=== PATIENT | male | born 1965 | race African-American/Black ===

== ENCOUNTER 2017-09-22 21:57 | Inpatient (IN) | payer OTHER ==
[2017-09-22 22:55] VITALS: BMI 23.1
--- NOTE | 2017-09-22 23:41 | HP ---
CIWA Score - CIWA Score Nausea/Vomitin Muscle Tremors: 4-Moderate,w/Arms Extend Anxiety: 4-Mod. Anxious/Guarded Agitation: 3 Paroxysmal Sweats: No Perspiration Orientation: 0-Oriented Tacttile Disturbances: 0-None Auditory Disturbances: 0-None Visual Disturbances: 0-None Headache: 3-Moderate CIWA-Ar Total Score: 17 Admission ROS BHS - HPI Chief Complaint: Alcohol withdrawal symptoms Allergies/Adverse Reactions: Allergies Allergy/AdvReac Type Severity Reaction Status Date / Time No Known Allergies Allergy Verified 09/22/17 23:18 History of Present Illness: 52 years old male with a long hstory of alcohol dependence is seeking admission to detox. Patient has been in previous detox and reports insignificant period of sobriety. He has medical history of prostate Cancer, HIV +, anemia, Hep. C and depression. Reports suicide attempt in 2017 and denies suicidal ideation at this time. Exam Limitations: No Limitations - Ebola screening Have you traveled outside of the country in the last 21 days: No Have you had contact with anyone from an Ebola affected area: No Have you been sick,other than usual withdrawal symptoms: No Do you have a fever: No - Review of Systems Constitutional: Chills, Loss of Appetite, Malaise, Night Sweats, Changes in sleep, Weakness, Unexplained wgt Loss (reports about 10lbs weight loss) EENT: reports: Nose Congestion Respiratory: reports: No Symptoms reported Cardiac: reports: No Symptoms Reported GI: reports: Nausea, Poor Appetite, Poor Fluid Intake, Vomiting, Abdominal cramping : reports: No Symptoms Reported Musculoskeletal: reports: Back Pain, Muscle Pain Integumentary: reports: Dryness, Flushing Neuro: reports: Headache, Tingling, Tremors Endocrine: reports: No Symptoms Reported Hematology: reports: Anemia Psychiatric: reports: Anxious, Depressed Other Systems: Reviewed and Negative Patient History - Patient Medical History Hx Anemia: Yes (Ferrous sulfate) Hx Asthma: No Hx Chronic Obstructive Pulmonary Disease (COPD): No Hx Cancer: Yes (Pancreatic Cancer) Hx Cardiac Disorders: No Hx Congestive Heart Failure: No Hx Hypertension: No Hx Hypercholesterolemia: No Hx Pacemaker: No HX Cerebrovascular Accident: No Hx Seizures: No Hx Dementia: No Hx Diabetes: No Hx Gastrointestinal Disorders: No Hx Liver Disease: Yes (Hep. C) Hx Genitourinary Disorders: No Hx Sexually Transmitted Disorders: Yes (HIV+) Hx Renal Disease (ESRD): No Hx Thyroid Disease: No Hx Human Immunodeficiency Virus (HIV): Yes (Diagnosed since 1996. Not on medication) Hx Hepatitis C: Yes (Treated with Harvoni ) Hx Depression: Yes (Seroquel) Hx Suicide Attempt: Yes (Reports attempt in 2017. Denies suicidal ideation at this time) Hx Bipolar Disorder: Yes Hx Schizophrenia: No - Patient Surgical History Past Surgical History: Yes Hx Neurologic Surgery: No Hx Cataract Extraction: No Hx Cardiac Surgery: No Hx Lung Surgery: No Hx Abdominal Surgery: No Hx Appendectomy: No Hx Cholecystectomy: No Hx Genitourinary Surgery: No Hx Orthopedic Surgery: No Other Surgical History: Hernia surgery at 14 years old Anesthesia Reaction: No - PPD History Previous Implant?: Yes (PPD POSITIVE 1991. INH and B12 THERAPY) Documented Results: Positive w/proof Implanted On Prior [facility] Admission?: No PPD to be Administered?: No - Reproductive History Patient is a Female of Child Bearing Age (11 -55 yrs old): No (MALE) - Smoking Cessation Smoking history: Former smoker Have you smoked in the past 12 months: No Hx Chewing Tobacco Use: No Initiated information on smoking cessation: No - Substance & Tx. History Hx Alcohol Use: Yes Hx Substance Use: Yes Substance Use Type: Cocaine, Marijuana Hx Substance Use Treatment: Yes ([facility]) - Substances Abused Alcohol Route: Oral Frequency: Daily Amount used: liquor- 2 pints, beer- 2 -24oz Age of first use: 10 Date of Last Use: 09/22/17 Cocaine Route: Smoking Frequency: Daily Amount used: $100 Age of first use: 10 Date of Last Use: 09/21/17 Marijuana/Hashish Route: Smoking Frequency: Daily Amount used: $50-$100 Age of first use: 20 Date of Last Use: 09/21/17 Family Disease History - Family Disease History Family Disease History: Diabetes: Grandparent, Mother, Heart Disease: Grandparent, Mother, CA: Grandparent, Mother Admission Physical Exam S - Vital Signs Vital Signs: Vital Signs - 24 hr 09/22/17 22:49 Temperature 98.9 F Pulse Rate 87 Respiratory 18 Rate Blood Pressure 100/50 - Physical General Appearance: Yes: Moderate Distress, Thin, Tremorous, Irritable, Anxious HEENTM: Yes: EOMI, Normal ENT Inspection, Normal Voice, GILL, Other (missing upper and lower teeth) Respiratory: Yes: Lungs Clear, Normal Breath Sounds, No Respiratory Distress Neck: Yes: Supple Breast: Yes: Breast Exam Deferred Cardiology: Yes: Regular Rhythm, Regular Rate, S1, S2 Abdominal: Yes: Normal Bowel Sounds, Soft Genitourinary: Yes: Within Normal Limits Back: Yes: Normal Inspection Musculoskeletal: Yes: Back pain Extremities: Yes: Tremors Neurological: Yes: Alert, Normal Mood/Affect Integumentary: Yes: Dry, Pale Lymphatic: Yes: Within Normal Limits - Diagnostic (1) Alcohol dependence with uncomplicated withdrawal Current Visit: Yes Status: Chronic (2) Prostate cancer Current Visit: Yes Status: Chronic (3) Depression Current Visit: Yes Status: Chronic Qualifiers: Depression Type: unspecified Qualified Code(s): F32.9 - Major depressive disorder, single episode, unspecified (4) Anemia Current Visit: Yes Status: Chronic Qualifiers: Anemia type: iron deficiency (5) Cannabis dependence Current Visit: Yes Status: Chronic (6) Cocaine dependence Current Visit: Yes Status: Chronic Qualifiers: Substance use status: uncomplicated Qualified Code(s): F14.20 - Cocaine dependence, uncomplicated (7) HIV (human immunodeficiency virus infection) Current Visit: Yes Status: Chronic Comment: unable to mentio last CD4 (8) Hepatitis C Current Visit: Yes Status: Resolved Comment: pt on harvoni but forgot to bring medication. Pt is aware that we dont carry this medication. Pt is made aware and in agreement that he wont take medication during his stay and will resume when he is d/c from rehab. BHS Breath Alcohol Content Breath Alcohol Content: 0 Urine Drug Screen - Results Drug Screen Negative: No Urine Drug Screen Results: THC-Marijuana, AGUSTINA-Cocaine, TCA-Tricyclic Antidepress
[2017-09-23] MEDS ORDERED: MAGNESIUM CITRATE 300 ML BOTTLE PO PRN
[2017-09-23] MEDS ORDERED: ACETAMINOPHEN 325 MG TABLET (FP) PO PRN
[2017-09-23] MEDS ORDERED: guaiFENesin/D-METHORPHAN HB 10 ML UNIT-DOSE CUPS PO PRN
[2017-09-23] MEDS ORDERED: LOPERAMIDE HCL 2 MG CAPSULE PO PRN
[2017-09-23] MEDS ORDERED: MAG HYDROX/AL HYDROX/SIMETH 30 ML UNIT-DOSE CUP PO PRN
[2017-09-23] MEDS ORDERED: MAGNESIUM HYDROX 2400MG/30ML ORAL SUSPENSION 30 ML CUP PO PRN
[2017-09-23] MEDS ORDERED: P-EPHED 60MG/TRIPROLIDI 2.5MG TABLET PO PRN
[2017-09-23] MEDS ORDERED: IBUPROFEN 400 MG TABLET (FP) PO PRN
[2017-09-23] MEDS ORDERED: chlordiazePOXIDE HCL 25 MG CAPSULE PO PRN
[2017-09-23] MEDS: chlordiazePOXIDE HCL 25 MG CAPSULE PO SCH ×4 (05:54→22:26)
[2017-09-23 08:45] LABS: URINE APPEARANCE SLCLOUDY; URINE BLOOD NEGATIVE (NEGATIVE); URINE GLUCOSE (UA) NEGATIVE (NEGATIVE); URINE KETONE TRACE (NEGATIVE); URINE LEUK ESTERASE NEGATIVE (NEGATIVE); URINE NITRITE NEGATIVE (NEGATIVE); URINE UROBILINOGEN 4.0 E.U/dl mg/dL (0.2-1.0)
[2017-09-23 09:01] LABS: URINE PROTEIN 2+ (NEGATIVE)
[2017-09-23 09:05] LABS: URINE COLOR DK YELLOW
[2017-09-23 09:11] LABS: EPI CELLS RARE /HPF (FEW); URINE HYALINE CAST 325 /lpf; URINE MUCUS MANY
[2017-09-23] MEDS ORDERED: PATIENT'S OWN MEDICATION (NON-FORMULARY) (Efavirenz/Emtricitab/Tenofovir 1 TAB) PO SCH ×2 (10:00)
[2017-09-23] MEDS ORDERED: DRONABINOL 5 MG CAPSULE PO SCH (10:00)
[2017-09-23] MEDS: PRENATAL VITAMINS W/ FOLIC ACID TABLET (FP) PO SCH (10:01)
[2017-09-23] MEDS: MEGESTROL ACETATE 400 MG/10 ML UNIT DOSE CUP PO SCH ×2 (10:01→22:26)
[2017-09-23 10:53] LABS: HEMATOCRIT 30.8 % (35.4-49); HEMOGLOBIN 10.3 GM/dL (11.7-16.9); MCH 30.4 pg (25.7-33.7); MCHC 33.4 g/dl (32.0-35.9); MEAN PLT VOLUME 8.5 fl (7.5-11.1); PLATELET COUNT 183 K/MM3 (134-434); RBC 3.39 M/mm3 (4.00-5.60); RDW 14.4 % (11.9-15.9); WHITE BLOOD COUNT 2.8 K/mm3 (4.0-10.0)
--- NOTE | 2017-09-23 10:53 | EKG ---
Test Reason : Blood Pressure : / mmHG Vent. Rate : 072 BPM Atrial Rate : 072 BPM P-R Int : 162 ms QRS Dur : 092 ms QT Int : 392 ms P-R-T Axes : 053 025 040 degrees QTc Int : 429 ms NORMAL SINUS RHYTHM NORMAL ECG NO PREVIOUS ECGS AVAILABLE Confirmed by URSULA CYR, KODY ([id number]) on 09/23/2017 10:53:00 AM Referred By: Confirmed By:KODY VERGARA MD
[2017-09-23 11:07] LABS: CHLORIDE 107 mmol/L (98-107); SODIUM 143 mmol/L (136-145)
[2017-09-23 11:37] LABS: ALBUMIN 3.2 g/dl (3.4-5.0); ALK PHOS 65 U/L (45-117); ANION GAP 8 (8-16); BILIRUBIN,TOTAL 0.2 mg/dL (0.2-1.0); BLOOD UREA NITROGEN 16 mg/dL (7-18); CO2 28 mmol/L (21-32); CREATININE 1.5 mg/dL (0.7-1.3); GLUCOSE,RANDOM 103 mg/dL (74-106); SGOT/AST 28 U/L (15-37); SGPT/ALT 16 U/L (12-78); TOT PROT 7.1 g/dl (6.4-8.2)
[2017-09-23] MEDS ORDERED: EMTRICITABINE 200MG/TENOFOVIR 300MG PO SCH (12:00)
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
--- NOTE | 2017-09-23 12:13 | PN ---
S CIWA - CIWA Score Nausea/Vomitin-Int. Nausea w/Dry Heave Muscle Tremors: 3 Anxiety: 4-Mod. Anxious/Guarded Agitation: 3 Paroxysmal Sweats: 1-Minimal Palms Moist Orientation: 0-Oriented Tacttile Disturbances: 0-None Auditory Disturbances: 0-None Visual Disturbances: 0-None Headache: 0-None Present CIWA-Ar Total Score: 15 BHS Progress Note (SOAP) Subjective: ANXIETY,SLIGHT TREMORS,NAUSEA,FATIGUE,INTERMITTENT SLEEP. Objective: 09/23/17 12:11 Vital Signs Temperature 96.1 F L 09/23/17 09:26 Pulse Rate 82 09/23/17 09:26 Respiratory Rate 18 09/23/17 09:26 Blood Pressure 94/67 09/23/17 09:26 O2 Sat by Pulse Oximetry (%) Laboratory Last Values WBC 2.8 K/mm3 (4.0-10.0) L D 09/23/17 07:00 RBC 3.39 M/mm3 (4.00-5.60) L 09/23/17 07:00 Hgb 10.3 GM/dL (11.7-16.9) L D 09/23/17 07:00 Hct 30.8 % (35.4-49) L D 09/23/17 07:00 MCV 91.0 fl (80-96) 09/23/17 07:00 MCH 30.4 pg (25.7-33.7) 09/23/17 07:00 MCHC 33.4 g/dl (32.0-35.9) 09/23/17 07:00 RDW 14.4 % (11.9-15.9) 09/23/17 07:00 Plt Count 183 K/MM3 (134-434) D 09/23/17 07:00 MPV 8.5 fl (7.5-11.1) 09/23/17 07:00 Sodium 143 mmol/L (136-145) 09/23/17 07:00 Potassium 4.0 mmol/L (3.5-5.1) 09/23/17 07:00 Chloride 107 mmol/L (98-107) 09/23/17 07:00 Carbon Dioxide 28 mmol/L (21-32) 09/23/17 07:00 Anion Gap 8 (8-16) 09/23/17 07:00 BUN 16 mg/dL (7-18) D 09/23/17 07:00 Creatinine 1.5 mg/dL (0.7-1.3) H D 09/23/17 07:00 Creat Clearance w eGFR 48.77 (>60) 09/23/17 07:00 Random Glucose 103 mg/dL (74-106) 09/23/17 07:00 Calcium 9.0 mg/dL (8.5-10.1) 09/23/17 07:00 Total Bilirubin 0.2 mg/dL (0.2-1.0) 09/23/17 07:00 AST 28 U/L (15-37) D 09/23/17 07:00 ALT 16 U/L (12-78) D 09/23/17 07:00 Alkaline Phosphatase 65 U/L (45-117) D 09/23/17 07:00 Total Protein 7.1 g/dl (6.4-8.2) 09/23/17 07:00 Albumin 3.2 g/dl (3.4-5.0) L 09/23/17 07:00 Urine Color Dk yellow 09/23/17 01:00 Urine Appearance Slcloudy 09/23/17 01:00 Urine pH 5.0 (5.0-8.0) D 09/23/17 01:00 Ur Specific [place] 1.029 (1.001-1.035) 09/23/17 01:00 Urine Protein 2+ (NEGATIVE) H 09/23/17 01:00 Urine Glucose (UA) Negative (NEGATIVE) 09/23/17 01:00 Urine Ketones Trace (NEGATIVE) H 09/23/17 01:00 Urine Blood Negative (NEGATIVE) 09/23/17 01:00 Urine Nitrite Negative (NEGATIVE) 09/23/17 01:00 Urine Bilirubin 2.0 (<2.0 mg/dL) 09/23/17 01:00 Urine Urobilinogen 4.0 e.u/dl mg/dL (0.2-1.0) 09/23/17 01:00 Ur Leukocyte Esterase Negative (NEGATIVE) 09/23/17 01:00 Urine WBC (Auto) 11 /hpf (3-5) 09/23/17 01:00 Urine RBC (Auto) 3 /hpf (0-3) 09/23/17 01:00 Ur Epithelial Cells Rare /HPF (FEW) 09/23/17 01:00 Hyaline Casts 325 /lpf 09/23/17 01:00 Urine Mucus Many 09/23/17 01:00 UA NOTED Assessment: 09/23/17 12:12 WITHDRAWAL SX Plan: CONTINUE DETOX INCREASE PO FLUIDS REPEAT UA TODAY ZOFRAN PRN
[2017-09-23] MEDS: EFAVIRENZ 600 MG TABLET PO SCH (12:47)
[2017-09-23] MEDS: FERROUS SO4 325 MG TABLET (FP) PO SCH (14:34)
[2017-09-23] MEDS ORDERED: MELATONIN 5 MG TABLETS PO PRN (22:00)
[2017-09-23] MEDS: THIAMINE HCL 100 MG TABLET (FP) PO SCH (22:25)
[2017-09-23] MEDS: QUEtiapine FUMARATE 100 MG TABLET (FP) PO SCH (22:26)
[2017-09-24] MEDS: chlordiazePOXIDE HCL 25 MG CAPSULE PO SCH ×4 (05:46→22:26)
[2017-09-24] MEDS: MENTHOL/PHENOL 1 EACH UD MM PRN (05:47)
[2017-09-24] MEDS: MEGESTROL ACETATE 400 MG/10 ML UNIT DOSE CUP PO SCH ×2 (10:28→22:26)
[2017-09-24] MEDS: PRENATAL VITAMINS W/ FOLIC ACID TABLET (FP) PO SCH (10:29)
[2017-09-24] MEDS: FERROUS SO4 325 MG TABLET (FP) PO SCH (10:29)
[2017-09-24] MEDS: EFAVIRENZ 600 MG TABLET PO SCH (10:51)
--- NOTE | 2017-09-24 17:07 | PN ---
S CIWA - CIWA Score Nausea/Vomitin Muscle Tremors: 3 Anxiety: 4-Mod. Anxious/Guarded Agitation: 3 Paroxysmal Sweats: No Perspiration Orientation: 0-Oriented Tacttile Disturbances: 2-Mild Itch/Numbness/Burn Auditory Disturbances: 1-Very Mild Visual Disturbances: 0-None Headache: 0-None Present CIWA-Ar Total Score: 16 BHS Progress Note (SOAP) Subjective: Tremors, Fatigue, Anxious, Nausea, Body Aches. Objective: PATIENT A & O X 3. NO ACUTE DISTRESS. 09/24/17 17:04 Vital Signs Temperature 97.7 F 09/24/17 13:19 Pulse Rate 92 H 09/24/17 13:19 Respiratory Rate 16 09/24/17 13:19 Blood Pressure 111/74 09/24/17 13:19 O2 Sat by Pulse Oximetry (%) Laboratory Tests 09/23/17 09/23/17 09/23/17 01:00 07:00 07:00 WBC 2.8 L D RBC 3.39 L Hgb 10.3 L D Hct 30.8 L D MCV 91.0 MCH 30.4 MCHC 33.4 RDW 14.4 Plt Count 183 D MPV 8.5 Sodium 143 Potassium 4.0 Chloride 107 Carbon Dioxide 28 Anion Gap 8 BUN 16 D Creatinine 1.5 H D Creat Clearance w eGFR 48.77 Random Glucose 103 Calcium 9.0 Total Bilirubin 0.2 AST 28 D ALT 16 D Alkaline Phosphatase 65 D Total Protein 7.1 Albumin 3.2 L Urine Color Dk yellow Urine Appearance Slcloudy Urine pH 5.0 D Ur Specific [place] 1.029 Urine Protein 2+ H Urine Glucose (UA) Negative Urine Ketones Trace H Urine Blood Negative Urine Nitrite Negative Urine Bilirubin 2.0 Urine Urobilinogen 4.0 e.u/dl Ur Leukocyte Esterase Negative Urine WBC (Auto) 11 Urine RBC (Auto) 3 Ur Epithelial Cells Rare Hyaline Casts 325 Urine Mucus Many RPR Titer 09/23/17 07:00 WBC RBC Hgb Hct MCV MCH MCHC RDW Plt Count MPV Sodium Potassium Chloride Carbon Dioxide Anion Gap BUN Creatinine Creat Clearance w eGFR Random Glucose Calcium Total Bilirubin AST ALT Alkaline Phosphatase Total Protein Albumin Urine Color Urine Appearance Urine pH Ur Specific [place] Urine Protein Urine Glucose (UA) Urine Ketones Urine Blood Urine Nitrite Urine Bilirubin Urine Urobilinogen Ur Leukocyte Esterase Urine WBC (Auto) Urine RBC (Auto) Ur Epithelial Cells Hyaline Casts Urine Mucus RPR Titer Nonreactive labs noted. Assessment: 09/24/17 17:04 WITHDRAWAL SYMPTOMS. Plan: CONTINUE DETOX. INCREASE DAILY PO FLUID INTAKE. D/C IBUPROFEN AND MAGNESIUM-CONTAINING MEDS. FOR ABNORMAL ADMISSION RENAL LAB VALUES. REPEAT CBC FOR ADMISSION ABNORMALITIES.
[2017-09-24] MEDS: THIAMINE HCL 100 MG TABLET (FP) PO SCH (22:26)
[2017-09-24] MEDS: QUEtiapine FUMARATE 100 MG TABLET (FP) PO SCH (22:26)
[2017-09-25 02:03] LABS: URINE APPEARANCE CLEAR; URINE BILIRUBIN NEGATIVE (<2.0 mg/dL); URINE BLOOD NEGATIVE (NEGATIVE); URINE COLOR STRAW; URINE GLUCOSE (UA) NEGATIVE (NEGATIVE); URINE KETONE NEGATIVE (NEGATIVE); URINE LEUK ESTERASE NEGATIVE (NEGATIVE); URINE NITRITE NEGATIVE (NEGATIVE); URINE PROTEIN NEGATIVE (NEGATIVE); URINE UROBILINOGEN NEGATIVE mg/dL (0.2-1.0)
[2017-09-25] MEDS: chlordiazePOXIDE 5 MG CAPSULE PO SCH ×4 (05:52→22:28)
[2017-09-25] MEDS: MENTHOL/PHENOL 1 EACH UD MM PRN (05:53)
[2017-09-25 10:03] LABS: BASO % 0.1 % (0-2.0); EOS % 0.4 % (0-4.5); HEMATOCRIT 35.5 % (35.4-49); HEMOGLOBIN 11.9 GM/dL (11.7-16.9); LYMPH % 33.3 % (8-40); MCH 30.4 pg (25.7-33.7); MCHC 33.6 g/dl (32.0-35.9); MEAN CELL VOLUME 90.6 fl (80-96); MEAN PLT VOLUME 8.5 fl (7.5-11.1); MONO % 10.6 % (3.8-10.2); NEUT % 55.6 % (42.8-82.8); PLATELET COUNT 219 K/MM3 (134-434); RBC 3.92 M/mm3 (4.00-5.60)
[2017-09-25] MEDS ORDERED: ONDANSETRON *ODT* 4 MG TABLET SL PRN (10:03)
[2017-09-25] MEDS: PRENATAL VITAMINS W/ FOLIC ACID TABLET (FP) PO SCH (10:51)
[2017-09-25] MEDS: FERROUS SO4 325 MG TABLET (FP) PO SCH (10:51)
[2017-09-25] MEDS: EFAVIRENZ 600 MG TABLET PO SCH (10:52)
[2017-09-25] MEDS: MEGESTROL ACETATE 400 MG/10 ML UNIT DOSE CUP PO SCH ×2 (11:27→22:28)
[2017-09-25] MEDS ORDERED: EMTRICITABINE 200MG/TENOFOVIR 300MG PO SCH (13:30)
--- NOTE | 2017-09-25 15:06 | PN ---
BHS Progress Note (SOAP) Subjective: ANXIETY,WSEATS,INTERMITTENT SLEEP.NAUSEA. Objective: 09/25/17 15:04 Vital Signs Temperature 98.1 F 09/25/17 13:28 Pulse Rate 83 09/25/17 13:28 Respiratory Rate 16 09/25/17 13:28 Blood Pressure 99/61 09/25/17 13:28 O2 Sat by Pulse Oximetry (%) Laboratory Tests 09/23/17 09/23/17 09/23/17 01:00 07:00 07:00 WBC 2.8 L D RBC 3.39 L Hgb 10.3 L D Hct 30.8 L D MCV 91.0 MCH 30.4 MCHC 33.4 RDW 14.4 Plt Count 183 D MPV 8.5 Neutrophils % Lymphocytes % Monocytes % Eosinophils % Basophils % Sodium 143 Potassium 4.0 Chloride 107 Carbon Dioxide 28 Anion Gap 8 BUN 16 D Creatinine 1.5 H D Creat Clearance w eGFR 48.77 Random Glucose 103 Calcium 9.0 Total Bilirubin 0.2 AST 28 D ALT 16 D Alkaline Phosphatase 65 D Total Protein 7.1 Albumin 3.2 L Urine Color Dk yellow Urine Appearance Slcloudy Urine pH 5.0 D Ur Specific [place] 1.029 Urine Protein 2+ H Urine Glucose (UA) Negative Urine Ketones Trace H Urine Blood Negative Urine Nitrite Negative Urine Bilirubin 2.0 Urine Urobilinogen 4.0 e.u/dl Ur Leukocyte Esterase Negative Urine WBC (Auto) 11 Urine RBC (Auto) 3 Ur Epithelial Cells Rare Hyaline Casts 325 Urine Mucus Many RPR Titer 09/23/17 09/25/17 09/25/17 07:00 00:05 08:00 WBC 4.0 D RBC 3.92 L Hgb 11.9 D Hct 35.5 D MCV 90.6 MCH 30.4 MCHC 33.6 RDW 14.0 Plt Count 219 MPV 8.5 Neutrophils % 55.6 Lymphocytes % 33.3 Monocytes % 10.6 H Eosinophils % 0.4 Basophils % 0.1 Sodium Potassium Chloride Carbon Dioxide Anion Gap BUN Creatinine Creat Clearance w eGFR Random Glucose Calcium Total Bilirubin AST ALT Alkaline Phosphatase Total Protein Albumin Urine Color Straw Urine Appearance Clear Urine pH 8.0 D Ur Specific [place] 1.008 Urine Protein Negative Urine Glucose (UA) Negative Urine Ketones Negative Urine Blood Negative Urine Nitrite Negative Urine Bilirubin Negative Urine Urobilinogen Negative Ur Leukocyte Esterase Negative Urine WBC (Auto) Urine RBC (Auto) Ur Epithelial Cells Hyaline Casts Urine Mucus RPR Titer Nonreactive REPEAT UA IMPROVED. Assessment: 09/25/17 15:05 WITHDRAWAL SX Plan: CONTINUE DETOX ZOFRAN SL PRN INCREASE PO FLUIDS TOLERATED
--- NOTE | 2017-09-25 18:49 | PN ---
[place] Progress Note Note: Psychiatry Attending's note (follow up): Chart reviewed. No report of sedation.Seroquel well tolerated. Plan : Seroquel is raised to 200 mg po hs. Patient agrees
[2017-09-25] MEDS: QUEtiapine FUMARATE 200 MG TABLET PO SCH (22:28)
[2017-09-25] MEDS: THIAMINE HCL 100 MG TABLET (FP) PO SCH (22:28)
[2017-09-26] MEDS: chlordiazePOXIDE HCL 10 MG CAPSULE PO SCH ×4 (05:52→22:39)
[2017-09-26] MEDS: MEGESTROL ACETATE 400 MG/10 ML UNIT DOSE CUP PO SCH ×2 (10:56→22:39)
[2017-09-26] MEDS: FERROUS SO4 325 MG TABLET (FP) PO SCH (10:56)
[2017-09-26] MEDS: PRENATAL VITAMINS W/ FOLIC ACID TABLET (FP) PO SCH (10:56)
[2017-09-26] MEDS: EFAVIRENZ 600 MG TABLET PO SCH (10:57)
--- NOTE | 2017-09-26 18:41 | PN ---
BHS Progress Note (SOAP) Subjective: Anxious, Interrupted Sleep. Objective: PATIENT A & O X 3, OBSERVED AMBULATING ON UNIT. NO ACUTE DISTRESS. 09/26/17 18:40 Vital Signs Temperature 96.4 F L 09/26/17 18:09 Pulse Rate 71 09/26/17 18:09 Respiratory Rate 16 09/26/17 18:09 Blood Pressure 121/88 09/26/17 18:09 O2 Sat by Pulse Oximetry (%) Laboratory Tests 09/23/17 09/23/17 09/23/17 01:00 07:00 07:00 WBC 2.8 L D RBC 3.39 L Hgb 10.3 L D Hct 30.8 L D MCV 91.0 MCH 30.4 MCHC 33.4 RDW 14.4 Plt Count 183 D MPV 8.5 Neutrophils % Lymphocytes % Monocytes % Eosinophils % Basophils % Sodium 143 Potassium 4.0 Chloride 107 Carbon Dioxide 28 Anion Gap 8 BUN 16 D Creatinine 1.5 H D Creat Clearance w eGFR 48.77 Random Glucose 103 Calcium 9.0 Total Bilirubin 0.2 AST 28 D ALT 16 D Alkaline Phosphatase 65 D Total Protein 7.1 Albumin 3.2 L Urine Color Dk yellow Urine Appearance Slcloudy Urine pH 5.0 D Ur Specific [place] 1.029 Urine Protein 2+ H Urine Glucose (UA) Negative Urine Ketones Trace H Urine Blood Negative Urine Nitrite Negative Urine Bilirubin 2.0 Urine Urobilinogen 4.0 e.u/dl Ur Leukocyte Esterase Negative Urine WBC (Auto) 11 Urine RBC (Auto) 3 Ur Epithelial Cells Rare Hyaline Casts 325 Urine Mucus Many RPR Titer 09/23/17 09/25/17 09/25/17 07:00 00:05 08:00 WBC 4.0 D RBC 3.92 L Hgb 11.9 D Hct 35.5 D MCV 90.6 MCH 30.4 MCHC 33.6 RDW 14.0 Plt Count 219 MPV 8.5 Neutrophils % 55.6 Lymphocytes % 33.3 Monocytes % 10.6 H Eosinophils % 0.4 Basophils % 0.1 Sodium Potassium Chloride Carbon Dioxide Anion Gap BUN Creatinine Creat Clearance w eGFR Random Glucose Calcium Total Bilirubin AST ALT Alkaline Phosphatase Total Protein Albumin Urine Color Straw Urine Appearance Clear Urine pH 8.0 D Ur Specific [place] 1.008 Urine Protein Negative Urine Glucose (UA) Negative Urine Ketones Negative Urine Blood Negative Urine Nitrite Negative Urine Bilirubin Negative Urine Urobilinogen Negative Ur Leukocyte Esterase Negative Urine WBC (Auto) Urine RBC (Auto) Ur Epithelial Cells Hyaline Casts Urine Mucus RPR Titer Nonreactive LABS NOTED. Assessment: 09/26/17 18:40 WITHDRAWAL SYMPTOMS. Plan: CONTINUE DETOX.
[2017-09-26] MEDS: QUEtiapine FUMARATE 200 MG TABLET PO SCH (22:39)
[2017-09-26] MEDS: THIAMINE HCL 100 MG TABLET (FP) PO SCH (22:40)
[2017-09-26] MEDS ORDERED: hydrOXYzine PAMOATE 50 MG CAPSULE (FP) PO ONE (23:23)
[2017-09-27 06:30] VITALS: BP 113/65; PULSE 66; TEMP 97.7
--- NOTE | 2017-09-27 09:12 | DS ---
[facility] Detox Discharge Summary Admission Date: 09/22/17 Discharge Date: 09/27/17 - History Present History: Alcohol Dependence, Cannabis Dependence, Cocaine Dependence - Physical Exam Results Vital Signs: Vital Signs Temperature 97.7 F 09/27/17 06:30 Pulse Rate 66 09/27/17 06:30 Respiratory Rate 18 09/27/17 06:30 Blood Pressure 113/65 09/27/17 06:30 O2 Sat by Pulse Oximetry (%) - Treatment Hospital Course: Detox Protocol Followed, Detoxed Safely, Responded well, Discharged Condition Good, Rehab Referral Accepted - Medication Discharge Medications: Ambulatory Orders Dronabinol [Marinol -] 10 mg PO BID 12/05/14 Ibuprofen [Motrin -] 800 mg PO TID PRN 12/05/14 Ledipasvir/Sofosbuvir [Harvoni 90-400 mg Tablet] 1 each PO DAILY 12/05/14 Efavirenz/Emtricitab/Tenofovir [Atripla Tablet -] 1 tab PO DAILY #30 tab Hydrocortisone 2.5% Topical Cr [Anusol-Hc -] 1 applic ME BID #1 tube 01/01/15 Megestrol Acetate Oral Susp [Megace Oral Suspension -] 2 tbs PO BID #1 ml Megestrol Acetate Oral Susp [Megace Oral Suspension -] 400 mg PO BID #1 cup Quetiapine Fumarate [Seroquel -] 300 mg PO HS #30 tablet 01/02/15 Quetiapine Fumarate [Seroquel -] 200 mg PO HS #30 tab 09/25/17 - Diagnosis (1) Alcohol dependence with uncomplicated withdrawal Current Visit: Yes Status: Chronic (2) Cannabis dependence Current Visit: Yes Status: Chronic (3) Cocaine dependence Current Visit: Yes Status: Chronic Qualifiers: Substance use status: uncomplicated Qualified Code(s): F14.20 - Cocaine dependence, uncomplicated (4) Insomnia Current Visit: Yes Status: Chronic (5) Anemia Current Visit: Yes Status: Chronic Qualifiers: Anemia type: iron deficiency Iron deficiency anemia type: unspecified iron deficiency Qualified Code(s): D50.9 - Iron deficiency anemia, unspecified (6) Depression Current Visit: Yes Status: Chronic Qualifiers: Depression Type: unspecified Qualified Code(s): F32.9 - Major depressive disorder, single episode, unspecified (7) HIV (human immunodeficiency virus infection) Current Visit: Yes Status: Chronic (8) History of prostate cancer Current Visit: Yes Status: Chronic (9) Nicotine dependence Current Visit: Yes Status: Chronic Qualifiers: Nicotine product type: cigarettes Substance use status: uncomplicated Qualified Code(s): F17.210 - Nicotine dependence, cigarettes, uncomplicated (10) Prostate cancer Current Visit: Yes Status: Chronic (11) Schizoaffective disorder Current Visit: Yes Status: Chronic (12) Hepatitis C Current Visit: Yes Status: Resolved Qualifiers: Viral hepatitis chronicity: chronic Hepatic coma status: without hepatic coma Qualified Code(s): B18.2 - Chronic viral hepatitis C (13) Weight loss Current Visit: No Status: Acute (14) Alcohol dependence Current Visit: No Status: Chronic - AMA Did Patient Leave Against Medical Advice: No
== END 2017-09-27 09:39 | disposition home or self-care (01) | DRG 897 ==
LOC: YASAS 21:57 → Y3N 23:10
PROVIDERS: ADMIT Internal Medicine; ATTEND Internal Medicine
PROC: HZ2ZZZZ Detoxification Services for Substance Abuse Treatment (ICD-10-PCS; principal; 2017-09-22)
DX: F10.230 Alcohol dependence with withdrawal, uncomplicated (principal); F14.20 Cocaine dependence, uncomplicated; F12.20 Cannabis dependence, uncomplicated; F17.210 Nicotine dependence, cigarettes, uncomplicated; F25.9 Schizoaffective disorder, unspecified; G47.00 Insomnia, unspecified; Z21 Asymptomatic human immunodeficiency virus [HIV] infection status; R63.4 Abnormal weight loss; Z68.23 Body mass index [BMI] 23.0-23.9, adult; C61 Malignant neoplasm of prostate
CPT/HCPCS: 36415; 71046-TC-FY; 80053; 81003; 81015; 85025; 85027; 86593; 93005; 93010; Q0162

== ENCOUNTER 2023-06-19 09:47 | Inpatient (IN) | payer OTHER ==
[2023-06-19 10:17] VITALS: BMI 22.1
[2023-06-19] MEDS ORDERED: IBUPROFEN 400 MG TABLET (FP) PO PRN (14:39)
[2023-06-19] MEDS ORDERED: LOPERAMIDE HCL 2 MG CAPSULE PO PRN (14:39)
[2023-06-19] MEDS ORDERED: BENZOCAINE/MENTHOL (CHLORASEPTIC ) LOZENGE MM PRN (14:39)
[2023-06-19] MEDS ORDERED: BENZONATATE 200 MG CAPSULE PO PRN (14:39)
[2023-06-19] MEDS ORDERED: MAGNESIUM HYDROX 2400MG/30ML ORAL SUSPENSION 30 ML CUP PO PRN (14:39)
[2023-06-19] MEDS ORDERED: COLLOIDAL OATMEAL 1 BAR EACH TP PRN (14:39)
[2023-06-19] MEDS ORDERED: guaiFENesin 600 MG TABLET.ER (FP) PO PRN (14:39)
[2023-06-19] MEDS ORDERED: IBUPROFEN 600 MG TABLET (FP) PO PRN (14:39)
[2023-06-19] MEDS ORDERED: POLYETHYLENE GLYCOL (HEALTHYLAX) 3350 17 GM PACKET PO PRN (14:39)
[2023-06-19] MEDS ORDERED: NICOTINE POLACRILEX 2 MG GUM BUC PRN (14:39)
[2023-06-19] MEDS ORDERED: TUBERCULIN PPD 5 TU/0.1ML SYRINGE (IN PATIENT USE ONLY) ID ONE (18:40)
[2023-06-19] MEDS: THIAMINE HCL 100 MG TABLET (FP) PO SCH (21:12)
[2023-06-19] MEDS: MELATONIN 5 MG TABLETS PO SCH (21:12)
[2023-06-20 09:44] LABS: CHLORIDE 106 mmol/L (98-107); POTASSIUM 4.1 mmol/L (3.5-5.1); SODIUM 138 mmol/L (136-145)
[2023-06-20 09:47] LABS: HEMATOCRIT 33.9 % (35.4-49); HEMOGLOBIN 11.3 GM/dL (11.7-16.9); MCH 30.3 pg (25.7-33.7); MCHC 33.4 g/dl (32.0-35.9); MEAN CELL VOLUME 90.9 fl (80-96); MEAN PLT VOLUME 8.1 fl (7.5-11.1); PLATELET COUNT 399 10^3/uL (134-434); RBC 3.73 M/mm3 (4.00-5.60); RDW 15.1 % (11.9-15.9); WHITE BLOOD COUNT 6.7 K/mm3 (4.0-10.0)
[2023-06-20 10:09] LABS: ALBUMIN 2.9 g/dl (3.4-5.0); ANION GAP 7 mmol/L (4-13); CALCIUM 8.9 mg/dL (8.5-10.1); CO2 25 mmol/L (21-32); GLUCOSE,RANDOM 91 mg/dL (74-106)
[2023-06-20 10:10] LABS: BLOOD UREA NITROGEN 8.2 mg/dL (7-18)
[2023-06-20 10:12] LABS: SGPT/ALT 14 U/L (13-61)
[2023-06-20 10:13] LABS: CREATININE 0.7 mg/dL (0.55-1.3); SGOT/AST 16 U/L (15-37)
[2023-06-20 10:14] LABS: BILIRUBIN,TOTAL 0.2 mg/dL (0.2-1); TOT PROT 7.5 g/dl (6.4-8.2)
[2023-06-20] MEDS: PRENATAL VITAMINS W/ FOLIC ACID TABLET (FP) PO SCH (10:14)
[2023-06-20 10:15] LABS: ALK PHOS 49 U/L (45-117)
[2023-06-20 16:26] LABS: URINE APPEARANCE CLEAR; URINE BILIRUBIN NEGATIVE (NEGATIVE); URINE COLOR YELLOW; URINE GLUCOSE (UA) NEGATIVE (NEGATIVE); URINE KETONE NEGATIVE (NEGATIVE); URINE LEUK ESTERASE NEGATIVE (NEGATIVE); URINE NITRITE NEGATIVE (NEGATIVE); URINE PROTEIN NEGATIVE (NEGATIVE)
[2023-06-20 16:47] LABS: SYPHILIS W/ RPR CONF NON-REACTIVE (NONREACTIVE)
[2023-06-20] MEDS: MELATONIN 5 MG TABLETS PO SCH (21:11)
[2023-06-20] MEDS: QUEtiapine FUMARATE 100 MG TABLET (FP) PO SCH (21:11)
[2023-06-20] MEDS: THIAMINE HCL 100 MG TABLET (FP) PO SCH (21:11)
[2023-06-20] MEDS ORDERED: QUEtiapine FUMARATE 200 MG TABLET PO SCH (22:00)
[2023-06-21] MEDS: PRENATAL VITAMINS W/ FOLIC ACID TABLET (FP) PO SCH (10:09)
[2023-06-21] MEDS: ACETAMINOPHEN 325 MG TABLET (FP) PO PRN (10:11)
[2023-06-21] MEDS: MAG HYDROX/AL HYDROX/SIMETH 30 ML UNIT-DOSE CUP PO PRN (20:13)
[2023-06-21] MEDS: MELATONIN 5 MG TABLETS PO SCH (21:44)
[2023-06-21] MEDS: QUEtiapine FUMARATE 100 MG TABLET (FP) PO SCH (21:45)
[2023-06-21] MEDS: THIAMINE HCL 100 MG TABLET (FP) PO SCH (21:45)
[2023-06-22] MEDS: PRENATAL VITAMINS W/ FOLIC ACID TABLET (FP) PO SCH (10:09)
[2023-06-22] MEDS: ACETAMINOPHEN 325 MG TABLET (FP) PO PRN (10:10)
[2023-06-22] MEDS: MAG HYDROX/AL HYDROX/SIMETH 30 ML UNIT-DOSE CUP PO PRN (10:11)
[2023-06-22] MEDS: QUEtiapine FUMARATE 100 MG TABLET (FP) PO SCH (21:03)
[2023-06-22] MEDS: MELATONIN 5 MG TABLETS PO SCH (21:03)
[2023-06-22] MEDS: THIAMINE HCL 100 MG TABLET (FP) PO SCH (21:03)
[2023-06-23] MEDS: MAG HYDROX/AL HYDROX/SIMETH 30 ML UNIT-DOSE CUP PO PRN ×2 (05:45→19:07)
[2023-06-23] MEDS: PRENATAL VITAMINS W/ FOLIC ACID TABLET (FP) PO SCH (10:02)
[2023-06-23] MEDS: MELATONIN 5 MG TABLETS PO SCH (21:04)
[2023-06-23] MEDS: THIAMINE HCL 100 MG TABLET (FP) PO SCH (21:04)
[2023-06-23] MEDS: QUEtiapine FUMARATE 100 MG TABLET (FP) PO SCH (21:04)
[2023-06-24] MEDS: ACETAMINOPHEN 325 MG TABLET (FP) PO PRN (06:58)
[2023-06-24] MEDS: PRENATAL VITAMINS W/ FOLIC ACID TABLET (FP) PO SCH (09:50)
[2023-06-24] MEDS: MAG HYDROX/AL HYDROX/SIMETH 30 ML UNIT-DOSE CUP PO PRN (09:51)
[2023-06-24] MEDS: MELATONIN 5 MG TABLETS PO SCH (21:06)
[2023-06-24] MEDS: QUEtiapine FUMARATE 100 MG TABLET (FP) PO SCH (21:07)
[2023-06-24] MEDS: THIAMINE HCL 100 MG TABLET (FP) PO SCH (21:08)
[2023-06-25] MEDS: P-EPHED 60MG/TRIPROLIDI 2.5MG TABLET PO PRN ×2 (05:39→22:08)
[2023-06-25] MEDS: PRENATAL VITAMINS W/ FOLIC ACID TABLET (FP) PO SCH (10:10)
[2023-06-25] MEDS: MELATONIN 5 MG TABLETS PO SCH (21:05)
[2023-06-25] MEDS: THIAMINE HCL 100 MG TABLET (FP) PO SCH (21:05)
[2023-06-25] MEDS: QUEtiapine FUMARATE 100 MG TABLET (FP) PO SCH (21:05)
[2023-06-26] MEDS: MAG HYDROX/AL HYDROX/SIMETH 30 ML UNIT-DOSE CUP PO PRN (02:34)
[2023-06-26] MEDS: PRENATAL VITAMINS W/ FOLIC ACID TABLET (FP) PO SCH (10:01)
[2023-06-26] MEDS: FERROUS SO4 300 MG/5 ML ORAL SOLN UNIT DOSE CUPS PO SCH (14:37)
[2023-06-26] MEDS: BENZOCAINE 20 % GEL TUBE MM PRN ×2 (14:38→19:55)
[2023-06-26] MEDS ORDERED: MEGESTROL ACETATE 400 MG/10 ML UNIT DOSE CUP PO SCH (15:15)
[2023-06-26] MEDS: MEGESTROL ACETATE 400 MG/10 ML UNIT DOSE CUP PO SCH ×2 (16:14→21:10)
[2023-06-26] MEDS: AMOX TR/POT CLAV 500MG/125MG TABLETS (FP) PO SCH (17:54)
[2023-06-26] MEDS: THIAMINE HCL 100 MG TABLET (FP) PO SCH (21:08)
[2023-06-26] MEDS: QUEtiapine FUMARATE 100 MG TABLET (FP) PO SCH (21:08)
[2023-06-26] MEDS: MELATONIN 5 MG TABLETS PO SCH (21:08)
[2023-06-26] MEDS: HYDROCORTISONE 2.5% TOPICAL CREAM 30 GM TUBE TP SCH (21:10)
[2023-06-26] MEDS: P-EPHED 60MG/TRIPROLIDI 2.5MG TABLET PO PRN (21:48)
[2023-06-27] MEDS: AMOX TR/POT CLAV 500MG/125MG TABLETS (FP) PO SCH ×2 (07:11→17:13)
[2023-06-27] MEDS: PRENATAL VITAMINS W/ FOLIC ACID TABLET (FP) PO SCH (09:50)
[2023-06-27] MEDS: FERROUS SO4 300 MG/5 ML ORAL SOLN UNIT DOSE CUPS PO SCH (09:50)
[2023-06-27] MEDS: MEGESTROL ACETATE 400 MG/10 ML UNIT DOSE CUP PO SCH ×2 (09:51→21:04)
[2023-06-27] MEDS: HYDROCORTISONE 2.5% TOPICAL CREAM 30 GM TUBE TP SCH ×2 (09:52→21:04)
[2023-06-27 11:29] LABS: INR 0.97 (0.83-1.09); PROTHROMBIN TIME (PATIENT) 11.2 SEC (9.7-13.0)
[2023-06-27] MEDS: BENZOCAINE 20 % GEL TUBE MM PRN (19:18)
[2023-06-27] MEDS: P-EPHED 60MG/TRIPROLIDI 2.5MG TABLET PO PRN (19:19)
[2023-06-27] MEDS: QUEtiapine FUMARATE 200 MG TABLET PO SCH (21:04)
[2023-06-27] MEDS: THIAMINE HCL 100 MG TABLET (FP) PO SCH (21:04)
[2023-06-28] MEDS: MAG HYDROX/AL HYDROX/SIMETH 30 ML UNIT-DOSE CUP PO PRN (03:47)
[2023-06-28] MEDS: AMOX TR/POT CLAV 500MG/125MG TABLETS (FP) PO SCH ×2 (07:00→17:08)
[2023-06-28] MEDS: MEGESTROL ACETATE 400 MG/10 ML UNIT DOSE CUP PO SCH ×2 (10:03→21:02)
[2023-06-28] MEDS: HYDROCORTISONE 2.5% TOPICAL CREAM 30 GM TUBE TP SCH ×2 (10:04→21:35)
[2023-06-28] MEDS: PRENATAL VITAMINS W/ FOLIC ACID TABLET (FP) PO SCH (10:04)
[2023-06-28] MEDS: FERROUS SO4 300 MG/5 ML ORAL SOLN UNIT DOSE CUPS PO SCH (10:04)
[2023-06-28] MEDS: QUEtiapine FUMARATE 200 MG TABLET PO SCH (21:02)
[2023-06-28] MEDS: THIAMINE HCL 100 MG TABLET (FP) PO SCH (21:02)
[2023-06-28] MEDS ORDERED: LACTULOSE 20 GM/30 ML UDC (FOR ORAL USE ONLY) PO SCH (22:00)
[2023-06-29 06:41] VITALS: BP 141/89; PULSE 95; RESP 20; TEMP 97.6
[2023-06-29] MEDS: AMOX TR/POT CLAV 500MG/125MG TABLETS (FP) PO SCH (07:04)
[2023-06-29] MEDS: HYDROCORTISONE 2.5% TOPICAL CREAM 30 GM TUBE TP SCH (09:51)
[2023-06-29] MEDS: MEGESTROL ACETATE 400 MG/10 ML UNIT DOSE CUP PO SCH (09:52)
[2023-06-29] MEDS: FERROUS SO4 300 MG/5 ML ORAL SOLN UNIT DOSE CUPS PO SCH (09:52)
[2023-06-29] MEDS: PRENATAL VITAMINS W/ FOLIC ACID TABLET (FP) PO SCH (09:52)
[2023-06-29] MEDS ORDERED: LACTULOSE 20 GM/30 ML UDC (FOR ORAL USE ONLY) PO SCH (10:00)
== END 2023-06-29 09:55 | disposition home or self-care (01) | DRG 895 ==
LOC: YASAS 09:47 → Y5N 17:02
PROVIDERS: ADMIT Allergy & Immunology; ATTEND Psychiatry & Neurology Pain Medicine
PROC: HZ42ZZZ Group Counseling for Substance Abuse Treatment, Cognitive-Behavioral (ICD-10-PCS; principal; 2023-06-19)
DX: F10.20 Alcohol dependence, uncomplicated (principal); F14.20 Cocaine dependence, uncomplicated; F12.20 Cannabis dependence, uncomplicated; F17.210 Nicotine dependence, cigarettes, uncomplicated; F25.9 Schizoaffective disorder, unspecified; F43.10 Post-traumatic stress disorder, unspecified; Z21 Asymptomatic human immunodeficiency virus [HIV] infection status; D64.9 Anemia, unspecified; K02.9 Dental caries, unspecified; Z62.810 Personal history of physical and sexual abuse in childhood; Z86.19 Personal history of other infectious and parasitic diseases; Z86.11 Personal history of tuberculosis; Z85.46 Personal history of malignant neoplasm of prostate
CPT/HCPCS: 0241U-QW; 36415; 71045-TC-FY; 80053; 80307; 81003; 82140; 82652; 83735; 85027; 85610; 86780; 86803; 87522; 87811

== ENCOUNTER 2023-09-25 10:10 | Inpatient (IN) | payer OTHER ==
[2023-09-25 11:08] VITALS: BMI 23.3
[2023-09-25] MEDS ORDERED: IBUPROFEN 400 MG TABLET (FP) PO PRN (12:32)
[2023-09-25] MEDS ORDERED: LOPERAMIDE HCL 2 MG CAPSULE PO PRN (12:32)
[2023-09-25] MEDS ORDERED: NALOXONE HCL (KLOXXADO) 8 MG SPRAY NS PRN (12:32)
[2023-09-25] MEDS ORDERED: guaiFENesin 600 MG TABLET.ER (FP) PO PRN (12:32)
[2023-09-25] MEDS ORDERED: DICYCLOMINE HCL 10 MG CAPSULE PO PRN (12:32)
[2023-09-25] MEDS ORDERED: NALOXONE HCL 0.4 MG/ML VIAL IM PRN (12:32)
[2023-09-25] MEDS ORDERED: BISMUTH SUBSALICYLATE 524 MG/30 ML PO PRN (12:32)
[2023-09-25] MEDS ORDERED: BENZOCAINE/MENTHOL (CHLORASEPTIC ) LOZENGE MM PRN (12:32)
[2023-09-25] MEDS ORDERED: ACETAMINOPHEN 325 MG TABLET (FP) PO PRN (12:32)
[2023-09-25] MEDS ORDERED: BENZONATATE 200 MG CAPSULE PO PRN (12:32)
[2023-09-25] MEDS ORDERED: MAG HYDROX/AL HYDROX/SIMETH 30 ML UNIT-DOSE CUP PO PRN (12:32)
[2023-09-25] MEDS ORDERED: IBUPROFEN 600 MG TABLET (FP) PO PRN (12:32)
[2023-09-25] MEDS ORDERED: MAGNESIUM HYDROX 2400MG/30ML ORAL SUSPENSION 30 ML CUP PO PRN (12:32)
[2023-09-25] MEDS ORDERED: POLYETHYLENE GLYCOL (HEALTHYLAX) 3350 17 GM PACKET PO PRN (12:32)
[2023-09-25] MEDS: PRENATAL VITAMINS W/ FOLIC ACID TABLET (FP) PO SCH (14:01)
[2023-09-25] MEDS: LORazepam 1 MG TABLET PO PRN (14:38)
[2023-09-25] MEDS ORDERED: LORazepam 1 MG TABLET ONE (14:44)
[2023-09-25] MEDS: LORazepam 2 MG TABLET PO SCH (17:24)
[2023-09-25] MEDS: THIAMINE HCL 100 MG TABLET (FP) PO SCH (22:14)
[2023-09-25] MEDS: MELATONIN 5 MG TABLETS PO SCH (22:15)
[2023-09-26] MEDS: HYDROCORTISONE 2.5% TOPICAL CREAM 30 GM TUBE RC SCH (00:08)
[2023-09-26] MEDS: BICTEGRAV/EMTRICIT/TENOFOV (BIKTARVY) 50-200-25 MG TABLET PO SCH (10:15)
[2023-09-26] MEDS: FERROUS SO4 300 MG/5 ML ORAL SOLN UNIT DOSE CUPS PO SCH (11:15)
[2023-09-26 14:11] LABS: POTASSIUM 3.7 mmol/L (3.5-5.1)
[2023-09-26 14:13] LABS: CALCIUM 8.7 mg/dL (8.5-10.1)
[2023-09-26 14:14] LABS: BLOOD UREA NITROGEN 9.8 mg/dL (7-18); HEMATOCRIT 32.2 % (35.4-49); MCH 31.5 pg (25.7-33.7); MCHC 34.2 g/dl (32.0-35.9); MEAN PLT VOLUME 8.8 fl (7.5-11.1); PLATELET COUNT 183 10^3/uL (134-434); RBC 3.51 M/mm3 (4.00-5.60); RDW 15.6 % (11.9-15.9)
[2023-09-26 14:17] LABS: CREATININE 0.8 mg/dL (0.55-1.3)
[2023-09-26 14:18] LABS: BILIRUBIN,TOTAL 0.4 mg/dL (0.2-1); TOT PROT 6.4 g/dl (6.4-8.2)
[2023-09-26] MEDS: MEGESTROL ACETATE 400 MG/10 ML UNIT DOSE CUP PO SCH (14:27)
[2023-09-26] MEDS: ONDANSETRON *ODT* 4 MG TABLET SL PRN (17:30)
[2023-09-26] MEDS: LACTULOSE 20 GM/30 ML UDC (FOR ORAL USE ONLY) PO SCH (22:36)
[2023-09-26] MEDS: QUEtiapine FUMARATE 100 MG TABLET (FP) PO SCH (22:37)
[2023-09-26] MEDS: METHOCARBAMOL 500 MG TABLET PO PRN (22:38)
[2023-09-27] MEDS: LORazepam 1 MG TABLET PO SCH (05:33)
[2023-09-28] MEDS ORDERED: LORazepam 0.5 MG TABLET PO PRN
[2023-09-28] MEDS: LORazepam 0.5 MG TABLET PO SCH (05:22)
[2023-09-28] MEDS: hydrOXYzine PAMOATE 25 MG CAPSULE (FP) PO PRN (17:40)
[2023-09-29] MEDS: LORazepam 0.5 MG TABLET PO ONE (05:34)
[2023-09-29 09:15] VITALS: BP 103/72; PULSE 86; RESP 18; TEMP 98.6
== END 2023-09-29 12:47 | disposition other institution (70) | DRG 897 ==
LOC: YASAS 10:10 → Y6N 14:20
PROVIDERS: ADMIT Allergy & Immunology; ATTEND Surgery
PROC: HZ2ZZZZ Detoxification Services for Substance Abuse Treatment (ICD-10-PCS; principal; 2023-09-25)
DX: F10.230 Alcohol dependence with withdrawal, uncomplicated (principal); F14.20 Cocaine dependence, uncomplicated; F25.9 Schizoaffective disorder, unspecified; F32.A Depression, unspecified; Z21 Asymptomatic human immunodeficiency virus [HIV] infection status; Z79.899 Other long term (current) drug therapy; D64.9 Anemia, unspecified; R79.89 Other specified abnormal findings of blood chemistry; R73.9 Hyperglycemia, unspecified; Z85.46 Personal history of malignant neoplasm of prostate; Z86.19 Personal history of other infectious and parasitic diseases; Z86.11 Personal history of tuberculosis; Z87.891 Personal history of nicotine dependence
CPT/HCPCS: 36415; 80053; 80307; 82140; 83036; 85027; 86780; 93005; 93010; Q0162